=== PATIENT | male | born 1950 | race Caucasian/White ===

== ENCOUNTER 2016-10-22 09:01 | Day surgery (SDC) | payer MEDICARE ==
[~2016-10-22 09:01] MED LIST: Buffered Lidocaine 1% SYR 3ML* 3 ML/SYR SYRINGE INTRADERM ONE; Famotidine IV* 10 MG/ML 2 ML (20 mg) IV ONE; Morphine INJ* 2 MG/ML 1 ML CARPUJECT IV PRN; PROCHLORPERAZINE INJ 5 MG/ML 2 ML VIAL IV PRN; fentaNYL* 50 MCG/ML 2 ML VIAL (100 MCG VIAL) IV PRN; oxyCODONE/Acetamin 5/325 MG* TAB PO PRN
[2016-10-22] MEDS ORDERED: Famotidine IV* 10 MG/ML 2 ML (20 mg) ONE (09:03)
[2016-10-22] MEDS ORDERED: Midazolam* 1 MG/ML 5 ML VIAL (5 MG) ONE (09:35)
[2016-10-22] MEDS ORDERED: fentaNYL* 50 MCG/ML 2 ML VIAL (100 MCG VIAL) ONE (09:35)
[2016-10-22] MEDS ORDERED: KETAMINE HCL* 50 MG/ML 10 ML VIAL ONE (09:35)
[2016-10-22] MEDS ORDERED: Bupivacaine 0.5% W/EPI SDV* 30 ML VIAL ONE (10:04)
[2016-10-22] MEDS ORDERED: Lidocaine 1% INJ* 10 MG/ML 30 ML SDV ONE ×2 (10:04→11:05)
[2016-10-22] MEDS ORDERED: Bupivacaine 0.25% SDV* 30 ML ONE (10:04)
[2016-10-22] MEDS ORDERED: Methylene Blue 1%* 10 ML VIAL ONE (10:04)
[2016-10-22] MEDS ORDERED: Propofol* 10 MG/ML 20 ML BTL IV PUSH ONE (11:45)
[2016-10-22] MEDS ORDERED: Lidocaine 2% PF* 10 ML AMP ONE (11:45)
--- NOTE | 2016-10-22 12:07 | SURGPN ---
Brief Operative Note - Surgery Procedures: 10/22/16 Op Note Pre-op dx: lymphoma Post-op dx: same Procedure: right axillary lymph node excision, power port placement on left Surgeon: Jed Virgen: Kirsty Anesthesia: local MAC EBL: 20 cc SCDs on during surgery Abx: none indicated Pt. tolerated procedure well and was transferred to in a stable condition. CLFoster
--- NOTE | 2016-10-22 12:28 | RAD ---
INDICATION: Status post PowerPort central venous catheter placement. COMPARISON: Comparison is made with a prior chest x-ray study from October 15, 2016. TECHNIQUE: A portable view of the chest was obtained. FINDINGS: The heart is within normal limits in size. There is widening of the mediastinum as previously noted which correlates with mediastinal lymphadenopathy on a prior PET/CT study from October 07, 2016. The lungs are underinflated and grossly clear. No pleural effusion or pneumothorax is seen. IMPRESSION: STATUS POST CENTRAL VENOUS CATHETER PLACEMENT, NO EVIDENCE FOR ACUTE FINDING.
--- NOTE | 2016-10-22 12:38 | RAD ---
INDICATION: Power port central venous catheter placement. COMPARISON: Comparison is made with a prior chest x-ray study from October 22, 2016. TECHNIQUE: 40.8 seconds of intermitted fluoroscopic guidance were provided and a single spot film of the chest was obtained in the operating room. FINDINGS: There is a power port central venous catheter present which demonstrates normal course. The catheter tip projects overlying the region of the distal superior vena cava and superior aspect of the right atrium. IMPRESSION: INTRAOPERATIVE CONTROL FILMS.
[2016-10-22] MEDS ORDERED: PROCHLORPERAZINE INJ 5 MG/ML 2 ML VIAL ONE (13:49)
[2016-10-22] MEDS ORDERED: Ondansetron INJ* 2 MG/ML VIAL IV ONE (14:03)
[2016-10-22] MEDS ORDERED: Ondansetron INJ* 2 MG/ML VIAL ONE (14:07)
[2016-10-22 14:19] VITALS: BP 163/83
--- NOTE | 2016-10-23 04:21 | OP ---
CC: [facility] OPERATIVE REPORT: DATE OF OPERATION: 10/22/16 DATE OF : 52 SURGEON: Shannon Adkins MD AGRICULTURAL EDUCATION INSTRUCTOR: RAJ Diane PRE-OP DIAGNOSIS: Lymphoma. POST-OP DIAGNOSIS: Lymphoma. OPERATIVE PROCEDURE: Right axillary lymph node excision and PowerPort placement. INDICATIONS: Mr. Arredondo is a 66-year-old male recently diagnosed by fine-needle aspiration to have lymphoma, who needed further excision of the lymph node in the axilla to better characterize the lym phoma and a PowerPort insertion. He was therefore prepared for surgery and brought to the operating room. PROCEDURE: He was placed on the OR table in the supine position and given IV sedation. The right a xilla and left chest were prepped and draped in the usual sterile fashion. First attention was turn ed to the right axilla where the node had been marked preoperatively and was easily palpable. A cur vilinear incision was made after infiltrating with local anesthetic and the subcutaneous tissue was divided with a combination of sharp and blunt dissection to expose the lymph nodes. It was then diss ected free from the surrounding tissue using clips to control small lymphatic and blood vessels that approached the gland as well as blunt dissection. Once it was able to be delivered into the wound, it was handed off as a specimen. It was noted to be about 5 cm in diameter. Hemostasis was then ass ured using primarily clips. Once the hemostasis appeared adequate, the wound was irrigated with tracy ine and additional local was instilled and then closure was accomplished with 3-0 Polysorb in the valero bcutaneous layer and the skin was closed with 4-0 Surgipro in a subcuticular fashion. Steri-Strips and a dry sterile dressing were applied. Left chest was then prepped and draped in the usual steril e fashion and after infiltrating with local anesthetic using a Seldinger technique, a wire was place d into the left subclavian vein under fluoroscopic visualization. A port pocket was then created af ter infiltrating with local anesthetic and making an incision. Subcutaneous tissue was divided with electrocautery to create a pocket and once the pocket was sized to accommodate the port, the cathet er was tunneled from the port pocket site to the wire exit site. The dilator and the introducer wer e then placed over the wire. The wire and dilator were removed and the catheter was advanced throug h the introducer into the left subclavian vein and to the superior vena cava under fluoroscopic visu alization. The introducer was then peeled away. The catheter was attached to the port. The port w as inserted into the port pocket and secured to the chest wall with 2-0 Surgipro stitch. Its functi on was checked and found to be adequate and closure was accomplished. This was done with 3-0 Polyso rb in the subcutaneous layer. The skin was closed with 4-0 Surgipro in a subcuticular fashion. Kyle ri-Strips and a dry sterile dressing were applied. All sponge and instrument counts were correct. T he patient tolerated the procedure well and was transferred to Recovery in a stable condition. [id number]/[facility] #: [id number]
[2016-11-04 16:04] LABS: BLYMF Source axillary lymph node; BLYMF Tissue ID S17 2093 B
== END 2016-10-22 14:21 | disposition home or self-care (01) ==
LOC: OR 09:01
PROVIDERS: ATTEND Surgery
DX: C82 Follicular lymphoma (principal); E66.9 Obesity, unspecified; E11.9 Type 2 diabetes mellitus without complications; Z79.84 Long term (current) use of oral hypoglycemic drugs; Z88.0 Allergy status to penicillin; J45.909 Unspecified asthma, uncomplicated; K21.9 Gastro-esophageal reflux disease without esophagitis; Z68.42 Body mass index [BMI] 45.0-49.9, adult; R16.2 Hepatomegaly with splenomegaly, not elsewhere classified; N13.30 Unspecified hydronephrosis
CPT/HCPCS: 36415; 71010; 86803; 88271; 88275; 88291; 88307; 88341; 88342; C1788; J0780; J1642; J2001; J2250; J2405; J2704; J3010

== ENCOUNTER 2016-12-20 18:54 | Emergency (ER) | payer MEDICARE ==
[2016-12-20 19:02] VITALS: BP 148/64
[2016-12-20] MEDS ORDERED: Acetaminophen TAB* 325 MG PO ONE (20:15)
[2016-12-20] MEDS ORDERED: NS 0.9% 1000 ML* 1,000 ML IV ONE (20:15)
[2016-12-20 20:41] LABS: Hematocrit 23 % (42-52); Hemoglobin 7.9 g/dl (14.0-18.0); Mean Corpuscular HGB Conc 34 g/dl (31-36); Mean Corpuscular Hemoglobin 28 pg (27-31); Mean Corpuscular Volume 83 fL (80-94); Mean Platelet Volume 8 um3 (7.4-10.4); Red Blood Count 2.82 10^6/ul (4.0-5.4); Red Cell Distribution Width 19 % (10.5-15); White Blood Count 1.6 10^3/ul (3.5-10.8)
[2016-12-20 20:42] LABS: Comments Flag Yes
[2016-12-20 20:43] LABS: Add Diff/Slide Review? Slide Review Added
[2016-12-20 21:13] LABS: Albumin 3.7 g/dL (3.2-5.2); BUN/Creatinine Ratio 15.8 (8-20); Calcium 9.3 mg/dL (8.6-10.3); EGFR African American 82.9 (>60); EGFR Non-African American 64.5 (>60); Globulin 3.3 g/dL (2-4); Magnesium 1.4 mg/dL (1.9-2.7); Potassium 3.6 mmol/L (3.5-5.0); Total Bilirubin 0.6 mg/dL (0.2-1.0)
--- NOTE | 2016-12-20 21:24 | RAD ---
INDICATION: Cough and fever. Large B-cell lymphoma. COMPARISON: November 09, 2016 CT abdomen. October 07, 2016 PET/CT. October 22, 2016 chest radiograph. TECHNIQUE: Dual energy PA and routine lateral views of the chest were obtained. REPORT: Mild diffuse prominence of interstitial markings. LEFT suprahilar alveolar consolidation is most consistent with pneumonia given the clinical context. Negative for pleural effusions. Tip of LEFT chest port at level of superior vena cava directed central. Negative for cardiomegaly. Unremarkable central pulmonary vasculature and mediastinal contours. RIGHT axillary surgical clips. IMPRESSION: LEFT suprahilar inflammatory infiltrate may involve the superior segment of the LEFT lower lobe or the LEFT upper lobe. Negative for pleural effusion.
[2016-12-20] MEDS ORDERED: Levofloxacin TAB* 250 MG PO ONE (21:30)
--- NOTE | 2016-12-25 06:39 | ED ---
Verna De Jesus Matthew, scribed for Elias Miner MD on 12/20/16 at 2047 . HPI Febrile Illness - HPI Summary HPI Summary: A 66 y/o male presents to the ED with a fever since 15:30 today. The fever reached a temperature of 103.9. The patient called Dr. Sin who recommend he presents to the ED. Associated symptoms include chills, cough, dizziness, dry mouth, and decreased PO intake. He denies nausea, vomiting, and diarrhea. He took Tylenol this morning. He received his 3rd round of chemo on 12/13/16. He has a Hx of diaphoresis with the chemo, but no fever or dry mouth. His last chemo therapy was 3 weeks prior and receives them every 3 weeks. - History of Current Complaint Chief Complaint: EDChestPainROMI Time Seen by Provider: 12/20/16 20:09 Hx Obtained From: Patient Onset/Duration: Started Hours Ago, Atraumatic, Still Present Timing: Constant Temperature: 103.9 F - 15:30 Initial Severity: Moderate Current Severity: None Aggravating Factors: Nothing Alleviating Factors: Nothing Associated Signs and Symptoms: Chills, Cough, Dizziness, Other: - dry mouth, decreased liquid intake - Allergy/Home Medications Allergies/Adverse Reactions: Allergies Allergy/AdvReac Type Severity Reaction Status Date / Time Penicillins Allergy Intermediate Rash Verified 10/22/16 09:10 PMH/Surg Hx/FS Hx/Imm Hx Endocrine/Hematology History: Reports: Hx Diabetes - on medication History: Sensory History: Reports: Hx Contacts or Glasses - glasses Opthamlomology History: Reports: Hx Contacts or Glasses - glasses - Surgical History Surgery Procedure, Year, and Place: [place] [facility] [place] Anesthesia Reactions: No Infectious Disease History: No Infectious Disease History: Denies: Traveled Outside the [place] in Last 30 Days - Family History Family History: No FHx of malignant hyperthermia. No FHx of anesthesia reaction - Social History Alcohol Use: None Substance Use Type: Reports: None Smoking Status (MU): Former Smoker Type: Cigarettes Amount Used/How Often: 1ppd - quit one year ago Review of Systems Constitutional: Other - Dry Mouth; Decreased Liquid Intake Positive: Fever - 103.9, Chills Eyes: Negative ENT: Negative Cardiovascular: Negative Positive: Cough Gastrointestinal: Negative Negative: Abdominal Pain, Vomiting, Diarrhea, Nausea Genitourinary: Negative Musculoskeletal: Negative Skin: Negative Neurological: Other - Dizziness, Psychological: Normal All Other Systems Reviewed And Are Negative: Yes Physical Exam Triage Information Reviewed: Yes Vital Signs On Initial Exam: Initial Vitals Temp Pulse Resp BP Pulse Ox 98.9 F 116 20 90/68 97 12/20/16 18:57 12/20/16 18:57 12/20/16 18:57 12/20/16 18:57 12/20/16 18:57 Vital Signs Reviewed: Yes Appearance: Positive: Well-Appearing, No Pain Distress Skin: Positive: Warm Head/Face: Positive: Normal Head/Face Inspection Eyes: Positive: DIANA ENT: Positive: Normal ENT inspection Neck: Positive: Supple Respiratory/Lung Sounds: Positive: Clear to Auscultation, Breath Sounds Present Cardiovascular: Positive: RRR Abdomen Description: Positive: Nontender, Soft Bowel Sounds: Positive: Present Musculoskeletal: Positive: Strength/ROM Intact Neurological: Positive: Alert, Oriented to Person Place, Time, CN Intact II-III Psychiatric: Positive: Affect/Mood Appropriate Diagnostics - Vital Signs Vital Signs Temp Pulse Resp BP Pulse Ox 12/20/16 19:00 100.1 F 115 20 148/64 97 12/20/16 18:57 98.9 F 116 20 90/68 97 - Laboratory Lab Results: Lab Results 12/20/16 12/20/16 12/20/16 Range/Units 20:31 20:31 20:31 WBC 1.6 L (3.5-10.8) 10^3/ul RBC 2.82 L (4.0-5.4) 10^6/ul Hgb 7.9 L (14.0-18.0) g/dl Hct 23 L (42-52) % MCV 83 (80-94) fL MCH 28 (27-31) pg MCHC 34 (31-36) g/dl RDW 19 H (10.5-15) % Plt Count 136 L (150-450) 10^3/ul MPV 8 (7.4-10.4) um3 Neut % (Auto) 66.2 (38-83) % Lymph % (Auto) 20.3 L (25-47) % Amelia % (Auto) 11.6 H (1-9) % Eos % (Auto) 0.7 (0-6) % Baso % (Auto) 1.2 (0-2) % Absolute Neuts (auto) 1.0 L (1.5-7.7) 10^3/ul Absolute Lymphs (auto) 0.3 L (1.0-4.8) 10^3/ul Absolute Monos (auto) 0.2 (0-0.8) 10^3/ul Absolute Eos (auto) 0 (0-0.6) 10^3/ul Absolute Basos (auto) 0 (0-0.2) 10^3/ul Absolute Nucleated RBC 0 10^3/ul Nucleated RBC % 0.2 Hem Pathologist Commnt Sodium 139 (133-145) mmol/L Potassium 3.6 (3.5-5.0) mmol/L Chloride 102 (101-111) mmol/L Carbon Dioxide 27 (22-32) mmol/L Anion Gap 10 (2-11) mmol/L BUN 18 (6-24) mg/dL Creatinine 1.14 (0.67-1.17) mg/dL Est GFR ( Amer) 82.9 (>60) Est GFR (Non-Af Amer) 64.5 (>60) BUN/Creatinine Ratio 15.8 (8-20) Glucose 168 H (70-100) mg/dL Lactic Acid 2.1 H* (0.5-2.0) mmol/L Calcium 9.3 (8.6-10.3) mg/dL Magnesium 1.4 L (1.9-2.7) mg/dL Total Bilirubin 0.60 (0.2-1.0) mg/dL AST 14 (13-39) U/L ALT 12 (7-52) U/L Alkaline Phosphatase 81 (34-104) U/L Total Protein 7.0 (6.4-8.9) g/dL Albumin 3.7 (3.2-5.2) g/dL Globulin 3.3 (2-4) g/dL Albumin/Globulin Ratio 1.1 (1-3) Result Diagrams: 12/20/16 20:31 12/20/16 20:31 Lab Statement: Any lab studies that have been ordered have been reviewed, and results considered in the medical decision making process. - Radiology CXR Xray Interpretation: Positive (See Comments) - IMPRESSION: LEFT suprahilar inflammatory infiltrate may involve the superior segment of the LEFT lower lobe or the LEFT upper lobe. Negative for pleural effusion. Radiology Interpretation Completed By: Radiologist - EKG 19:04 Cardiac Rate: Tachycardia - 109 bpm EKG Rhythm: Sinus Tachycardia EKG Interpretation: No STEMI Course/Dx - Course Assessment/Plan: A 66 y/o male presents to the ED with a fever since 15:30 today. The fever reached a temperature of 103.9. The patient called Dr. Sin who recommend he presents to the ED. Associated symptoms include chills, cough, dizziness, dry mouth, and decreased PO intake. He denies nausea, vomiting, and diarrhea. He took Tylenol this morning. He received his 3rd round of chemo on 12/13/16. He has a Hx of diaphoresis with the chemo, but no fever or dry mouth. His last chemo therapy was 3 weeks prior and receives them every 3 weeks. CXR shows LEFT suprahilar inflammatory infiltrate may involve the superior segment of the LEFT lower lobe or the LEFT upper lobe. Negative for pleural effusion. Labs were reviewed and showed lactic acid of 2.1. EKG showed sinus tachycardia at 109 bpm. In the ED course, the patient was given Tylenol, IV fluids, and Levaquin. The patient was discharged home with PCP follow-up. - Diagnoses Provider Diagnoses: Febrile illness - Provider Notifications Discussed Care Of Patient With: Dr. Monique (Oncology) -- Notified of patient's history. Discharge - Discharge Plan Condition: Stable Disposition: HOME Prescriptions: Levofloxacin TAB* [Levaquin TAB*] 750 mg PO DAILY #7 tab Patient Education Materials: Levofloxacin (By mouth), Fever in Adults (ED) Referrals: Sanchez Sin MD [Medical Doctor] - 2 Days Leo Grayson MD [Primary Care Provider] - Additional Instructions: Please follow-up with Dr. Sin. The documentation as recorded by the Verna yuan Matthew accurately reflects the service I personally performed and the decisions made by me, Elias Miner MD.
== END 2016-12-20 22:04 | disposition home or self-care (01) ==
LOC: ED 18:54
DX: R50.9 Fever, unspecified (principal); Z88.0 Allergy status to penicillin; E11.9 Type 2 diabetes mellitus without complications; Z87.891 Personal history of nicotine dependence
CPT/HCPCS: 36415; 71020; 80053; 83605; 83735; 85025; 85060; 87040; 93005; 96360; 99282; A9270-GY

== ENCOUNTER 2017-04-25 06:20 | Day surgery (SDC) | payer MEDICARE ==
[~2017-04-25 06:20] MED LIST changes: +Acetaminophen TAB* 325 MG PO PRN; +Buffered Lidocaine 0.9% SYRIN* 5 ML/SYR SYRINGE INTRADERM ONE; -Buffered Lidocaine 1% SYR 3ML* 3 ML/SYR SYRINGE INTRADERM ONE; -Famotidine IV* 10 MG/ML 2 ML (20 mg) IV ONE; -Morphine INJ* 2 MG/ML 1 ML CARPUJECT IV PRN; -PROCHLORPERAZINE INJ 5 MG/ML 2 ML VIAL IV PRN; -fentaNYL* 50 MCG/ML 2 ML VIAL (100 MCG VIAL) IV PRN; -oxyCODONE/Acetamin 5/325 MG* TAB PO PRN
[2017-04-25] MEDS ORDERED: Midazolam* 1 MG/ML 2 ML VIAL (2 MG) ONE ×2 (07:28→07:52)
[2017-04-25] MEDS ORDERED: fentaNYL* 50 MCG/ML 2 ML VIAL (100 MCG VIAL) ONE (07:28)
[2017-04-25 08:50] VITALS: BP 121/95
--- NOTE | 2017-04-25 09:01 | OP ---
DATE OF OPERATION: 04/25/17 - [facility] DATE OF : 52 SURGEON: Juan Perdomo MD ANESTHESIA: Monitored anesthesia care. PRE-OP DIAGNOSIS: Cataract of the right eye. POST-OP DIAGNOSIS: Cataract of the right eye. OPERATIVE PROCEDURE: Cataract surgery of the right eye. IMPLANTS: SN60WF 20.0 diopter lens to the right eye. COMPLICATIONS: None. DESCRIPTION OF PROCEDURE: The patient was given phenylephrine 2.5% and cyclopentolate 1% eye drops to the operative eye in the preoperative area. The patient was brought to the operating room, where a time-out was taken to identify the correct patient, site, and side of the surgery. The patient's right eye was prepped and draped in the usual sterile fashion with 5% Betadine. A second time- out was taken to verify the correct patient, site, and side of the surgery and correct lens selection. A lid speculum was placed to the right eye. A 1-mm paracentesis blade was used to make a clear corneal incision in the superotemporal position. Preservative-free 1% lidocaine was injected into the anterior chamber. DisCoVisc was injected in the anterior chamber. A 2.75- mm keratome blade was used to make a triplanar incision at the inferotemporal position. A cystotome initiated a capsulorrhexis, which was completed with Utrata forceps in a continuous and curvilinear manner. Hydrodissection of the lens was performed with BSS on a cannula. The lens could be spun in the capsular bag. The phacoemulsification handpiece was used with a divide-and- conquer technique to remove the nucleus in its entirety. The I/A handpiece then removed the residual cortical lens material. DisCoVisc was injected to inflate the capsular bag. The planned SN60WF 20.0 diopter lens was injected in the capsular bag. The residual DisCoVisc was removed from the eye with the I/A handpiece. The corneal incisions were hydrated and no leaks occurred at physiologic pressure around 20 mmHg per palpation. The lid speculum was removed and drapes removed. Maxitrol ointment was placed to the surface of the operative eye. An adhesive patch and shield was placed on the operative eye. The patient was taken to the postoperative area in stable condition. [id number]/[facility] #: [id number] MTDD
[2017-04-25] MEDS ORDERED: Phenylephrine 2.5% OPTH.SOL* 2 ML BTL ONE (14:41)
[2017-04-25] MEDS ORDERED: Cyclopentolate 1% OPTH.SOL* 2 ML BTL ONE (14:41)
[2017-04-25] MEDS ORDERED: acetaZOLAMIDE TAB* 250 MG ONE (14:41)
[2017-04-25] MEDS ORDERED: Neomycin/Polymy/Dex OPHTH.OIN* 3.5 GM ONE (14:41)
[2017-04-25] MEDS ORDERED: Lidocaine 1% MPF* 2 ML VIAL ONE (14:41)
[2017-04-25] MEDS ORDERED: Flurbiprofen 0.03% OPTH.SOL* 2.5 ML BTL ONE (14:41)
[2017-04-25] MEDS ORDERED: Tetracaine 0.5% OPTH.SOL 4 ML* 1 DROP BTL ONE (14:41)
[2017-04-25] MEDS ORDERED: Tropicamide 1% OPTH.SOL* BTL ONE (14:41)
[2017-04-25] MEDS ORDERED: Buffered Lidocaine 0.9% SYRIN* 5 ML/SYR SYRINGE ONE (14:41)
[2017-04-25] MEDS ORDERED: Povidone Iodine 5% OPTH* 30 ML BTL ONE (14:41)
== END 2017-04-25 08:50 | disposition home or self-care (01) ==
LOC: OREAST 06:20
PROVIDERS: ATTEND Student in an Organized Health Care Education/Training Program
DX: H25.13 Age-related nuclear cataract, bilateral (principal); E11.65 Type 2 diabetes mellitus with hyperglycemia; C85.88 Other specified types of non-Hodgkin lymphoma, lymph nodes of multiple sites; R21 Rash and other nonspecific skin eruption; B35.4 Tinea corporis; B35.3 Tinea pedis; R31.0 Gross hematuria; D64.9 Anemia, unspecified; Z79.84 Long term (current) use of oral hypoglycemic drugs; Z88.0 Allergy status to penicillin; Z87.891 Personal history of nicotine dependence
CPT/HCPCS: A9270-GY; J2250; J3010; V2632

== ENCOUNTER 2017-05-02 09:49 | Day surgery (SDC) | payer MEDICARE ==
[2017-05-02] MEDS ORDERED: fentaNYL* 50 MCG/ML 2 ML VIAL (100 MCG VIAL) ONE (11:51)
[2017-05-02] MEDS ORDERED: Midazolam* 1 MG/ML 2 ML VIAL (2 MG) ONE ×2 (11:52→12:17)
[2017-05-02 13:23] VITALS: BP 145/82
[2017-05-02] MEDS ORDERED: Ketorolac 0.5% OPHTH (NF) 0.5 % 5 ML BTL ONE (16:39)
[2017-05-02] MEDS ORDERED: Phenylephrine 2.5% OPTH.SOL* 2 ML BTL ONE (16:40)
[2017-05-02] MEDS ORDERED: Tropicamide 1% OPTH.SOL* BTL ONE (16:40)
[2017-05-02] MEDS ORDERED: Povidone Iodine 5% OPTH* 30 ML BTL ONE (16:40)
[2017-05-02] MEDS ORDERED: Lidocaine 1% MPF* 2 ML VIAL ONE (16:40)
[2017-05-02] MEDS ORDERED: acetaZOLAMIDE TAB* 250 MG ONE (16:40)
[2017-05-02] MEDS ORDERED: Tetracaine 0.5% OPTH.SOL 4 ML* 1 DROP BTL ONE (16:40)
[2017-05-02] MEDS ORDERED: Cyclopentolate 1% OPTH.SOL* 2 ML BTL ONE (16:40)
[2017-05-02] MEDS ORDERED: Buffered Lidocaine 0.9% SYRIN* 5 ML/SYR SYRINGE ONE (16:40)
[2017-05-02] MEDS ORDERED: Neomycin/Polymy/Dex OPHTH.OIN* 3.5 GM ONE (16:40)
--- NOTE | 2017-05-02 21:12 | OP ---
DATE OF OPERATION: 05/02/17 - [facility] DATE OF : 52 SURGEON: Juan Perdomo MD ANESTHESIOLOGIST: Jason Candelario MD ANESTHESIA: Monitored anesthesia care. PRE-OP DIAGNOSIS: Cataract of the left eye. POST-OP DIAGNOSIS: Cataract of the left eye. OPERATIVE PROCEDURE: Cataract surgery of the left eye. IMPLANTS: SN60WF 19.5 diopter lens to the left eye. COMPLICATIONS: None. DESCRIPTION OF PROCEDURE: The patient was given phenylephrine 2.5% and cyclopentolate 1% eye drops to the operative eye in the preoperative area. The patient was brought to the operating room where a time-out was taken to identify the correct patient, site, and side of surgery. The patient's left eye was prepped and draped in the usual sterile fashion with 5% Betadine. A second time-out was taken to verify the correct patient, site, and side of surgery, and correct lens selection. A lid speculum was placed to the left eye. A 1-mm paracentesis blade was used to make a clear corneal incision in the inferotemporal position. Preservative-free 1% lidocaine was injected into the anterior chamber. DisCoVisc was then injected into the anterior chamber. A 2.75-mm keratome blade was used to make a triplanar incision at the superotemporal position. A cystotome initiated a capsulorrhexis, which was completed with Utrata forceps in a continuous and curvilinear manner. Hydrodissection of the lens was performed with BSS on a cannula. The lens could be spun in the capsular bag. The phacoemulsification handpiece was used with a yjgfbt-wam-fossfis technique to remove the nucleus in its entirety with 20.97 CDE. The I/A handpiece then removed the residual cortical lens material. DisCoVisc was injected to inflate the capsular bag. The planned SN60WF 19.5 diopter lens was injected into the capsular bag. The residual DisCoVisc was removed from the eye with the I/A. The corneal incisions were hydrated and no leaks occurred at physiologic pressure around 20 mmHg. The lid speculum was removed and drapes removed. Maxitrol ointment was placed on the surface of the operative eye. An adhesive patch and shield was placed on the operative eye. The patient was taken to the postoperative area in stable condition. [id number]/[facility] #: [id number] MTDD
== END 2017-05-02 13:21 | disposition home or self-care (01) ==
LOC: OREAST 09:49
PROVIDERS: ATTEND Student in an Organized Health Care Education/Training Program
DX: H25.12 Age-related nuclear cataract, left eye (principal); Z96.1 Presence of intraocular lens; E11.65 Type 2 diabetes mellitus with hyperglycemia; C85.88 Other specified types of non-Hodgkin lymphoma, lymph nodes of multiple sites; R21 Rash and other nonspecific skin eruption; B35.4 Tinea corporis; B35.3 Tinea pedis; R31.0 Gross hematuria; D64.9 Anemia, unspecified; Z79.84 Long term (current) use of oral hypoglycemic drugs; Z88.0 Allergy status to penicillin; Z87.891 Personal history of nicotine dependence
CPT/HCPCS: A9270-GY; J2250; J3010; V2632